=== PATIENT | male | born 1995 | race Caucasian/White ===

== ENCOUNTER 2017-05-12 18:51 | Inpatient (IN) | payer BC, OTHER ==
[~2017-05-12] VITALS: Ht 190.5 cm; Wt 68.0 kg
--- NOTE | 2017-05-12 20:50 | NUR ---
Pre-admission assessment Patient is a 21-year old, male, seen at intake, AAOx4, no SOB noted at this time. Pt noted to be restless. Discussed with patient admission policies of the unit. Patient is coherent and able to respond to questions appropriately. Pt is ambulatory with steady gait. Noted with open skin on the left outer forearm. Per pt, "I keep on scratching it." Pt reports using these substance daily for the last 5 years: Heroin 0.5 to 1 gm IV and Methamphetamine 0.5 to 1 gm IV. Vital signs taken and as follows: VA=314/74, P=82, O2 sat on RA=97%, RR=20, T=98.3. Pt verbalized instructions and teachings regarding disposal of narcotic and other controlled home meds, unit protocols such as taking of vital signs Q4H and handling and disposal of contraband.
[2017-05-12] MEDS ORDERED: ONDANSETRON ODT 4 MG TAB.RAPDIS SL PRN (21:30)
[2017-05-12] MEDS ORDERED: IBUPROFEN 400 MG TABLET PO PRN (21:30)
[2017-05-12] MEDS ORDERED: METHOCARBAMOL 750 MG TABLET PO PRN (21:30)
[2017-05-12] MEDS ORDERED: DICYCLOMINE HCL 20 MG TABLET PO PRN (21:30)
[2017-05-12] MEDS ORDERED: ACETAMINOPHEN 325 MG TABLET PO PRN (21:30)
[2017-05-12] MEDS ORDERED: MIRALAX 17 GM POWD.PACK PO PRN (21:30)
[2017-05-12] MEDS ORDERED: HYDROXYZINE PAMOATE 25 MG CAPSULE PO PRN (21:30)
[2017-05-12] MEDS ORDERED: CLONIDINE HCL 0.1 MG TABLET PO PRN (21:30)
[2017-05-12] MEDS ORDERED: BUPRENORPHINE HCL 2 MG TAB.SUBL SL PRN (21:30)
[2017-05-12] MEDS ORDERED: ONDANSETRON 4 MG/2 ML VIAL IM PRN (21:30)
[2017-05-12] MEDS ORDERED: MAG HYDROX/AL HYDROX/SIMETH 30 ML LIQUID UDC PO PRN (21:30)
[2017-05-12] MEDS ORDERED: MAGNESIUM HYDROXIDE 30 ML LIQUID UDC PO PRN (21:30)
[2017-05-12] MEDS ORDERED: LOPERAMIDE HCL 2 MG CAPSULE PO PRN ×2 (21:30)
--- NOTE | 2017-05-12 22:00 | NUR ---
ADMISSION NOTE HT=6'3" XR=723 LBS B/P=133/74,HR=82,T=98.1,R=20,O2 SAT=07%. NKA. HX OF HEP C. COW=2 ADMITTING 21 Y/O MALE TO [facility] FOR OPIATE AND METH DEPENDENCY.PT REPORTED USING HEROIN AND METH, ON AND OFF FOR PAST 5 YEARS.HE HAS BEEN USING 1 GRAM OF HEROIN IV AND 0.5 GRAMS OF METH IV ON A DAILY BASIS FOR THE PAST 8 DAYS.HE WAS LIVING IN A SOBER LIVING PLACE BUT RELAPSED 8 DAYS AGO AND HAS BEEN LIVING IN A HOTEL.HE REFUSED TO DISCLOSE HIS OCCUPATION,STATED "I MAKE A LOT OF MONEY".PT DENIES ANY ALLERGIES.PMH OF HEPATITIS C.PT DOES NOT HAVE A PCP.HAS NO SUPPORT FROM HIS FAMILY. PT IS A/O X 4.BREATHING IS EVEN AND NON LABORED,ABDOMEN NON TENDER WITH HYPOACTIVE BOWEL SOUNDS X 4.SKIN IS WARM AND DRY.PT HAS A SELF INFLICTED ABRASION ON HIS LEFT FOREARM DUE TO SCRATCHING ON HIMSELF.NO DISCHARGE OR BLEEDING NOTED.NO S/S OF INFECTION NOTED.NO C/O PAIN NOTED.PT AMBULATES WITH A STEADY GAIT.COOPERATIVE WITH ADMISSION.PLACED ON A REGULAR DIET,FULL CODE STATUS AND FALL PRECAUTIONS.ALL SAFETY MEASURES IN PLACE,SNACK PROVIDED,PO FLUIDS ENCOURAGED TOLERATED.PT UNABLE TO PROVIDE A URINE SPECIMEN UPON ADMISSION.BED IS LOCKED IN THE LOWEST POSITION WITH SIDE RAILS UP X 2,CALL TODD WITHIN REACH.PT ORIENTED TO ROOM AND UNIT.DR MAKI MADE AWARE.WILL CONTINUE TO MONITOR FOR SAFE DETOX. SUBS ABUSE HX 1)HEROIN-PT USES 1 GRAM IV DAILY FOR PAST 8-9 DAYS,LAST USED ON 05/12/17 @ 1700. 2)METH-PT USES 0.1 GRAM IV DAILY FOR PAST 8 DAYS,LAST USED ON 05/11/17 IN THE EVENING. LONGEST PERIOD OF SOBRIETY WAS FOR 92 DAYS FROM APRIL TO 2015. RECENT DETOX HX:-- 1)[facility] FOR 12 DAYS IN MARCH 2017. 2)[facility] DET[facility] FOR 21 DAYS IN OCTOBER 2016. Addendum: 05/13/17 at 0737 by SUKI BARNES RN LATE ENTRY FOR 05/12/17 @ 2200 :--PT HAS SEVERAL TRACK GARCIA ON BOTH ARMS,HANDS AND NECK.NO S/S OF INFECTION NOTED.
--- NOTE | 2017-05-13 06:54 | NUR ---
END OF SHIFT PT IS 21 Y/O MALE ADMITTED TO [facility] FOR OPIATE AND METH DEPENDENCY.PT REPORTED USING HEROIN AND METH, ON AND OFF FOR PAST 5 YEARS.HE HAS BEEN USING 1 GRAM OF HEROIN IV AND 0.5 GRAMS OF METH IV ON A DAILY BASIS FOR THE PAST 8 DAYS.PT DENIES ANY ALLERGIES.PMH OF HEPATITIS C.PT IS A/O X 4.BREATHING IS EVEN AND NON LABORED,ABDOMEN NON TENDER WITH HYPOACTIVE BOWEL SOUNDS X 4.SKIN IS WARM AND DRY.PT HAS A SELF INFLICTED ABRASION ON HIS LEFT FOREARM DUE TO SCRATCHING ON HIMSELF.NO DISCHARGE OR BLEEDING NOTED.NO S/S OF INFECTION NOTED.NO C/O PAIN NOTED.PICTURE TAKEN AND PLACED IN CHART.PT AMBULATES WITH A STEADY GAIT.PLACED ON A REGULAR DIET,FULL CODE STATUS AND FALL PRECAUTIONS.ALL SAFETY MEASURES IN PLACE.PO FLUIDS ENCOURAGED TOLERATED.PT UNABLE TO PROVIDE A URINE SPECIMEN UPON ADMISSION.WILL ENDORSE DAY SHIFT TO FOLLOW UP.PT SLEPT 7 HRS,FLUID INTAKE WAS 286 MLS,UNABLE TO VOID. PT REFUSED BLOOD DRAW X 2 FOR LAB WORK.WILL ENDORSE TO DAY SHIFT.NO PRN MEDS GIVEN.BED IS LOCKED IN THE LOWEST POSITION WITH SIDE RAILS UP X 2,CALL TODD WITHIN REACH.WILL CONTINUE TO MONITOR FOR SAFE DETOX.
--- NOTE | 2017-05-13 07:05 | NUR ---
Start Of Shift Report received. Pt is 21 y/o male admitted for opiate and meth dependency. Pt is full code regular diet on fall precautions, denies any food or drug allergies. Pt reported PMH of hepatitis C. Pt is not currently on a taper but has medication in case of withdrawal symptoms. Pt's last COWS was a 2, pt did not receive any PRN medications per voicer nurse. Encouraged pt to drink adequate amount of fluids to facilitate detox process. All safety measures in place bed in lowest locket position, pt slept a total of 8 hours last night. All needs met will continue to monitor and provide care
[2017-05-13 08:00] VITALS: BP 105/65
[2017-05-13] MEDS ORDERED: TUBERCULIN,PURIF.PROT.DERIV. 5 TU/0.1 ML TEST ID ONE (09:00)
[2017-05-13] MEDS: MULTIVITAMINS,THERAPEUTIC TABLET PO SCH (09:00)
[2017-05-13 12:00] VITALS: BP 115/72
[2017-05-13 13:00] LABS: BASOPHILS % (AUTO) 0.5 % (0.0-2.0); EOSINOPHILS # (AUTO) 0.1 K/uL (0.0-0.7); EOSINOPHILS % (AUTO) 1.9 % (0.0-7.0); HEMATOCRIT 42.9 % (40-50); HEMOGLOBIN 14.1 G/DL (14.0-18.0); LYMPHOCYTES # (AUTO) 1.7 K/UL (0.8-4.8); LYMPHOCYTES % (AUTO) 25.3 % (20.5-74.5); MEAN CORPUSCULAR HEMOGLOBIN 29.8 UUG (27.0-31.0); MEAN CORPUSCULAR HGB CONC 33 g/dL (32.0-37.0); MEAN CORPUSCULAR VOLUME 90.3 FL (82.0-92.0); MONOCYTES # (AUTO) 0.4 K/UL (0.1-1.30); MONOCYTES % (AUTO) 6.4 % (0-11); NEUTROPHILS # (AUTO) 4.6 K/UL (1.8-8.9); NEUTROPHILS % (AUTO) 65.9 % (31.5-64.5); PLATELET COUNT (AUTO) 199 K/UL (150-450); RED BLOOD CELL COUNT(AUTO) 4.75 MIL/UL (4.7-6.1); WHITE BLOOD COUNT (AUTO) 6.8 K/UL (4.0-11.2)
[2017-05-13 13:13] LABS: ETHANOL < 3 MG/DL (0-0)
[2017-05-13 13:15] LABS: ALANINE AMINOTRANSFERASE 30 U/L (16-63); ALKALINE PHOSPHATASE 63 U/L (50-136); AMYLASE 38 U/L (25-115); ASPARTATE AMINOTRANSFERASE 24 U/L (15-37); BILIRUBIN,TOTAL 0.3 mg/dL (0.2-1.0); CARBON DIOXIDE 28 mmol/L (21-32); CHLORIDE 106 mmol/L (98-107); CREATININE 0.8 mg/dL (0.6-1.3); GLUCOSE 94 mg/dL (74-106); LIPASE 106 U/L (73-393); MAGNESIUM 1.8 mg/dL (1.8-2.4); POTASSIUM 3.9 mmol/L (3.5-5.1); TOTAL PROTEIN, SERUM 7.1 g/dL (6.4-8.2); UREA NITROGEN, BLOOD 10 mg/dL (7-18)
[2017-05-13 13:26] LABS: THYROID STIMULATING HORMONE 0.141 mIU/mL (0.358-3.740)
[2017-05-13] MEDS: BUPRENORPHINE HCL 2 MG TAB.SUBL SL SCH ×3 (13:59→20:15)
[2017-05-13 15:36] LABS: *AMPHETAMINE, URINE NEGATIVE (NEGATIVE); *BARBITURATE, URINE NEGATIVE (NEGATIVE); *CANNABINOID, URINE POSITIVE (NEGATIVE); *COCCAINE, URINE NEGATIVE (NEGATIVE); *OPIATE, URINE POSITIVE (NEGATIVE); *PHENCYCLIDINE SCREEN,URINE NEGATIVE (NEGATIVE)
[2017-05-13 16:00] VITALS: BP 100/69
--- NOTE | 2017-05-13 19:22 | NUR ---
End Of Shift Report given. Pt is 21 y/o male admitted for opiate and meth dependency. Pt is full code regular diet on fall precautions, denies any food or drug allergies. Pt reported PMH of hepatitis C. Pt started his 5 day Subutex taper tolerating well. VS monitored closely q 4 hours. Withdrawal symptoms were closely monitored. Initial COWS 5. Patient encouraged adequate PO fluid intake as tolerated. Patient presented with tremors and anxiety during the day. Last COWS 13. Per patient, Subutex has been helping him with his withdrawal symptoms. Pt ate all of his meals. No PRN medications given during the day. Patient encouraged to attend group therapies/sessions to learn new coping skills to recent relapse, patient denies SI/HI. Participated in group and therapy sessions. All needs met and attended
--- NOTE | 2017-05-13 19:26 | NUR ---
START OF SHIFT NOTE Pt is a 21 y/o male admitted for Heroin and Meth dependence and use. Pt has NKA but reported a PMH of Hep C, depression, and anxiety. Per day shift nurse pt was placed on a 5 day Subutex taper (day 1) and is tolerating medication well with no s/e or a/r reported. Pt didn't receive any PRNS during the day shift. Last COW: 13 (1600). At this time pt is in his room watching television. Pt's skin is dry and intact with no tremors noted. PERRLA noted. Pt denies any pain/discomfort at this time. Pt was encouraged to notify staff of any changes in condition or of any concerns. Pt verbalized an understanding. All safety measures in place. Will continue to monitor.
[2017-05-13 20:00] VITALS: BP 138/89
[2017-05-14] VITALS: BP 137/89
--- NOTE | 2017-05-14 04:00 | NUR ---
VITALS REFUSED/ COW DEFERRED Pt refused to have vitals taken at this time. Pt was encouraged x 3 with risks and benefits explained, but the pt still refused. COW assessment deferred until pt is awake. All safety measures in place. Will continue to monitor. Addendum: 05/14/17 at 0455 by DRE NEGRETE LVN Amended: Links added.
--- NOTE | 2017-05-14 07:19 | NUR ---
END OF SHIFT NOTE Pt is a 21 y/o male admitted for Heroin and Meth dependence and use. Pt has NKA but reported a PMH of Hep C, depression, and anxiety. Pt was placed on a 5 day Subutex taper (day 2) and is tolerating medication well with no s/e or a/r reported. Pt didn't receive any PRNS during the shift. Last COW: 1 (0000). Pt slept for a total of 8 hours. All safety measures in place. Will endorse to the oncoming nurse.
--- NOTE | 2017-05-14 07:20 | NUR ---
Start Of Shift Report received. Pt is 21 y/o male admitted for opiate and meth dependency. Pt is full code regular diet on fall precautions, denies any food or drug allergies. Pt reported PMH of hepatitis C. Pt Pt continues his 5 day Subutex taper, tolerating well. Pt c/o sweats, anxiety and difficulty sleeping last night. Pt's last COWS was a 1 at 0000, pt did not receive any PRN medications per mold shifter nurse. Encouraged pt to drink adequate amount of fluids to facilitate detox process. All safety measures in place bed in lowest locket position, pt slept a total of 8 hours last night. All needs met will continue to monitor and provide care
[2017-05-14 08:00] VITALS: BP 100/63
[2017-05-14] MEDS ORDERED: TUBERCULIN,PURIF.PROT.DERIV. 5 TU/0.1 ML TEST ID ONE (09:00)
[2017-05-14] MEDS ORDERED: BUPRENORPHINE HCL 2 MG TAB.SUBL SL SCH (09:00)
[2017-05-14] MEDS: MULTIVITAMINS,THERAPEUTIC TABLET PO SCH (09:23)
[2017-05-14 10:07] LABS: HEPATITIS B SURFACE AG Negative (Negative)
[2017-05-14 12:00] VITALS: BP 131/78
[2017-05-14] MEDS: BUPRENORPHINE HCL 2 MG TAB.SUBL SL SCH ×2 (15:39→21:30)
[2017-05-14 16:00] VITALS: BP 130/76
--- NOTE | 2017-05-14 19:09 | NUR ---
End Of Shift Report given. Pt is 21 y/o male admitted for opiate and meth dependency. Pt is full code regular diet on fall precautions, denies any food or drug allergies. Pt reported PMH of hepatitis C. Pt started his 5 day Subutex taper tolerating well. VS monitored closely q 4 hours. Withdrawal symptoms were closely monitored. Initial COWS 7. Patient encouraged adequate PO fluid intake as tolerated. Patient presented with tremors and anxiety during the day. Last COWS 4. Per patient, Subutex has been helping him with his withdrawal symptoms. Pt ate all of his meals Pt received a PPD on his right arm. No PRN medications given during the day. Patient encouraged to attend group therapies/sessions to learn new coping skills to recent relapse, patient denies SI/HI. Participated in group and therapy sessions. All needs met and attended
[2017-05-14 20:00] VITALS: BP 123/82
--- NOTE | 2017-05-14 20:00 | NUR ---
START OF SHIFT NOTE Pt is a 21 y/o male admitted for Heroin and Meth dependence and use. Pt has NKA but reported a PMH of Hep C, depression, and anxiety. Per day shift nurse pt continues on a 5 day Subutex taper (day 2) and is tolerating medication well with no s/e or a/r reported. Pt didn't receive any PRNS during the day shift. Last COW: 4 (1600). At this time pt is in his room watching television. Pt's skin is dry and intact with no tremors noted. PERRLA noted. Pt denies any pain/discomfort at this time. Pt was encouraged to notify staff of any changes in condition or of any concerns. Pt verbalized an understanding. All safety measures in place. Will continue to monitor.
[2017-05-14] MEDS: diphenhydrAMINE 50 MG CAPSULE PO PRN (21:34)
--- NOTE | 2017-05-14 21:37 | NUR ---
BENADRYL PRN ADMINISTRATION Pt received Benadryl 50 mg PO PRN for c/o insomnia. Will monitor for effectiveness.
--- NOTE | 2017-05-14 22:37 | NUR ---
BENADRYL PRN REASSESSMENT Pt is asleep in bed with no signs of discomfort/distress noted. PRN effective. Will continue to monitor.
--- NOTE | 2017-05-15 | NUR ---
VITALS REFUSED/ COW DEFERRED Pt refused to have vitals taken at this time. Pt was encouraged x 3 with risks and benefits explained, but the pt still refused. COW assessment deferred until pt is awake. All safety measures in place. Will continue to monitor. Addendum: 05/15/17 at 0416 by DRE NEGRETE LVN Amended: Links added.
--- NOTE | 2017-05-15 04:00 | NUR ---
VITALS REFUSED/ COW DEFERRED Pt refused to have vitals taken at this time. Pt was encouraged x 3 with risks and benefits explained, but the pt still refused. COW assessment deferred until pt is awake. All safety measures in place. Will continue to monitor. Addendum: 05/15/17 at 0417 by DRE NEGRETE LVN Amended: Links added.
--- NOTE | 2017-05-15 06:53 | NUR ---
END OF SHIFT NOTE Pt is a 21 y/o male admitted for Heroin and Meth dependence and use. Pt has NKA but reported a PMH of Hep C, depression, and anxiety. Pt continues on a 5 day Subutex taper (day 3) and is tolerating medication well with no s/e or a/r reported. Pt received Benadryl 50 mg PO PRN during the shift. Last COW: 3 (1999). Pt slept for a total of 8 hours. All safety measures in place. Will endorse to the oncoming nurse.
--- NOTE | 2017-05-15 07:40 | NUR ---
START OF SHIFT Pt is a 22 yr old male, AA&Ox3. Pt was admitted on 05/12/17 for Opiate and Methamphetamines dependence and is on 4 day Subutex taper as ordered. Pt is currently in bed resting with respirations even and unlabored. No acute distress noted. Skin is warm and dry to touch. Pt is still noted with LFA abrasion presented upon admission. No s/s of infection noted. Benadryl PRN was given during the night. Medication was affective. Last COWS score was 3. Safety precautions observed. Call light is within reach. Will continue to monitor.
[2017-05-15 08:08] VITALS: BP 100/57
[2017-05-15] MEDS: MULTIVITAMINS,THERAPEUTIC TABLET PO SCH (09:00)
[2017-05-15] MEDS: BUPRENORPHINE HCL 2 MG TAB.SUBL SL SCH ×3 (09:39→21:40)
--- NOTE | 2017-05-15 09:40 | NUR ---
REFUSED MEDICATION Pty refuse to take Multivitamin as ordered at 0900. Medication was offered x3 but pt continued to refuse. Risks and benefits were explained.
[2017-05-15 12:36] VITALS: BP 114/51
[2017-05-15 16:00] VITALS: BP 131/82
--- NOTE | 2017-05-15 18:56 | NUR ---
END OF SHIFT Pt is a 22 yr old male, AA&Ox3. Pt was admitted on 05/12/17 for Opiate and Methamphetamines dependence and is on 4 day Subutex taper as ordered. Pt has been cooperative with medication regime. Pt refused to attend group sessions. Encouraged to attend group activities. Pt is observed with aniety m/b difficulty staying still. Skin is warm and dry to touch. Pt is still noted with LFA abrasion presented upon admission. No s/s of infection noted. Dressing intact. Pt c/o pain on left arm. Tylenol PRN and Motrin was offered but pt refused. Last COWS score was 3. Safety precautions observed. Call light is within reach.
[2017-05-15 20:00] VITALS: BP 122/70
--- NOTE | 2017-05-15 20:12 | NUR ---
START OF SHIFT NOTE Pt is a 22 y/o male admitted for Heroin and Meth dependence and use. Pt has NKA but reported a PMH of Hep C, depression, and anxiety. Per day shift nurse pt continues on a 5 day Subutex taper (day 3) and is tolerating medication well with no s/e or a/r reported. Pt didn't receive any PRNS during the day shift. Last COW: 3 (1600). At this time pt has approached the station requesting to go down and have a cigarette. Pt's skin is dry and intact with no tremors noted. PERRLA noted. Pt denies any pain/discomfort at this time. Pt was encouraged to notify staff of any changes in condition or of any concerns. Pt verbalized an understanding. All safety measures in place. Will continue to monitor.
[2017-05-15] MEDS: diphenhydrAMINE 50 MG CAPSULE PO PRN (23:10)
--- NOTE | 2017-05-15 23:10 | NUR ---
BENADRYL PRN ADMINISTRATION Pt received Benadryl 20 mg PO PRN for a c/o insomnia. All safety measures in place. Will monitor for effectiveness.
[2017-05-16] VITALS: BP 128/76
--- NOTE | 2017-05-16 00:10 | NUR ---
BENADRYL PRN REASSESSMENT Pt is asleep in bed with no signs of discomfort/distress noted. PRN effective. All safety measures in place. Will continue to monitor.
--- NOTE | 2017-05-16 04:00 | NUR ---
VITALS REFUSED/ COW DEFERRED Pt refused to have vitals taken at this time. Pt was encouraged x 3 with risks and benefits explained but the pt still declined. COW assessment deferred until pt is awake. All safety measures in place. Will continue to monitor. Addendum: 05/16/17 at 0531 by DRE NEGRETE LVN Amended: Links added.
--- NOTE | 2017-05-16 07:01 | NUR ---
END OF SHIFT NOTE Pt is a 22 y/o male admitted for Heroin and Meth dependence and use. Pt has NKA but reported a PMH of Hep C, depression, and anxiety. Pt continues on a 5 day Subutex taper (day 4) and is tolerating medication well with no s/e or a/r reported. Pt received Benadryl 50 mg PO PRN during the shift. Last COW: 2 (0000). Pt slept for a total of 6 hours. All safety measures in place. Will endorse to the oncoming nurse.
--- NOTE | 2017-05-16 07:35 | NUR ---
START OF SHIFT NOTE Patient is alert and orientated X 4. Laying in bed resting with respirations even and unlabored. Patient slept 6 hours last night according to night nurse with the last COWS 2. Benadryl PRN was given last night. Patient has an abrasion on his forearm that is clean and covered. Patient is on a subutex taper and tolerating well. All safety measures in place. will continue to monitor.
[2017-05-16 08:12] VITALS: BP 105/73
[2017-05-16] MEDS ORDERED: BUPRENORPHINE HCL 2 MG TAB.SUBL SL SCH (09:00)
[2017-05-16] MEDS: MULTIVITAMINS,THERAPEUTIC TABLET PO SCH (09:16)
[2017-05-16] MEDS ORDERED: DICY20TA28 PO (10:22)
[2017-05-16] MEDS ORDERED: METH-406 PO (10:22)
[2017-05-16] MEDS ORDERED: IBUP-1953 PO (10:22)
[2017-05-16] MEDS ORDERED: DIPH50CA37 PO (10:22)
[2017-05-16] MEDS ORDERED: HYDR-3895 PO (10:22)
[2017-05-16 12:37] VITALS: BP 111/59
--- NOTE | 2017-05-16 14:13 | NUR ---
Therapist prompted client about group times. Client stated he is "too tired" to attend groups and he is "leaving tomorrow anyway."
[2017-05-16] MEDS ORDERED: NEOMY/BACITRAC/POLYMI OINT 28.35 GM TUBE TOP PRN (16:30)
[2017-05-16] MEDS ORDERED: BOOST PLUS 237 ML LIQUID (RICH CHOCOLATE) PO SCH (17:00)
[2017-05-16 17:17] LABS: *AMPHETAMINE, URINE NEGATIVE (NEGATIVE); *BARBITURATE, URINE NEGATIVE (NEGATIVE); *CANNABINOID, URINE NEGATIVE (NEGATIVE); *COCCAINE, URINE NEGATIVE (NEGATIVE); *OPIATE, URINE POSITIVE (NEGATIVE); *PHENCYCLIDINE SCREEN,URINE NEGATIVE (NEGATIVE)
[2017-05-16 17:28] VITALS: BP 124/64
--- NOTE | 2017-05-16 18:59 | NUR ---
END OF SHIFT NOTE Patient is alert and oriented X4. Vital signs remain stable throughout the day. Patient received no PRNs today. Last COWS 2, patient has no complaints of withdrawal symptoms today. He participated in group and activities. Plan is for patient to be discharge tomorrow to [facility]. All safety measures are in place per hospital policy. All needs have been met. Will continue to monitor patient until endorsed to oncoming nurse.
--- NOTE | 2017-05-16 19:45 | NUR ---
Start of Shift Note: Report received from day shift nurse. Pt is a 22 Y/O male admitted on 05/12/17 for medically-supervised withdrawal from opiates and stimulants. Pt reports using heroin 1gm/day and methamphetamine 0.5gm/day for 8 days. Pt completed a 4-day Subutex taper and is to discharge tomorrow. Pt received with last COWS=2, and no PRN medications were given during day shift. Pt reports NKDA/NKFA. Pt is a full code. Pt is on a regular diet. PMHx: Hep-C+, anxiety, depression. Pt received in room, and reports anxiety, diaphoresis, generalized pain; pt noted to be mildly agitated and restless d/t not be able to smoke during group session and states that he "does not need a meeting." Pt educated on the importance of attending group to maintain sobriety. Bed is in low position and locked, side rails up x2, call light within reach. Will continue to monitor.
[2017-05-16 20:00] VITALS: BP 103/67
[2017-05-16] MEDS: diphenhydrAMINE 50 MG CAPSULE PO PRN (23:40)
--- NOTE | 2017-05-16 23:40 | NUR ---
PRN Vistaril and PRN Benadryl: Patient complains of anxiety and inability to sleep. Administered PRN Vistaril and PRN Benadryl as ordered. Will continue to monitor.
[2017-05-17] VITALS: BP 101/72
--- NOTE | 2017-05-17 00:40 | NUR ---
PRN Reassessment: Patient is in bed with eyes closed. Respirations are even and unlabored. No s/s of acute distress noted. PRN Vistaril and PRN Benadryl effective AEB patient's ability to rest.
--- NOTE | 2017-05-17 04:00 | NUR ---
V/S Refused, COWS Deferred: Patient refuses 04:00 vital signs. Patient educated on risks/benefits and still refused for sleep. COWS is deferred for sleep. All safety precautions are in place. Will continue to monitor. Addendum: 05/17/17 at 0436 by BINH ORELLANA RN Amended: Links added.
--- NOTE | 2017-05-17 07:01 | NUR ---
End of Shift Note: Pt is a 22 Y/O male admitted to [facility] on 05/12/17 for medically-supervised withdrawal from opiates and stimulants. Pt reported a PMHx of Hep-C+, anxiety, and depression. Pt is a full code. Pt reports NKDA/NKFA. Pt is on a regular diet. Pt reported using heroin 1gm/day and methamphetamine 0.5gm/day for 8 days. Pt completed a 4-day Subutex taper and is to discharge today. Scheduled medication regime managed s/s of withdrawal this shift, in addition to PRN Vistaril for anxiety. Last COWS=3 at 00:00.V/S stable throughout shift. Total fluid intake this shift: 1855 ml; output: urine x 4 and BM x 0. PRN Benadryl was given for insomnia, which was effective and slept 6 hours this shift. Pt is currently in bed, all needs have been attended and met. Pt endorsed to day shift nurse.
--- NOTE | 2017-05-17 07:08 | NUR ---
Start of Shift Endorsement received from nightshift nurse. Pt is a 22 y/o male admitted for heroin and meth dependance. PT has been placed on a 4day Subutex taper. PT has completed his taper and has been scheduled to be discharged today, 05/17/17. All discharge documentation and discharge education has been completed. Pt slept 8 hours during the night. Pt is tolerating the detox and mildly withdrawing AEB COWS 3 at 0400. Pt received PRN Vistaril and Benadryl. VS WNL. Full Code. PT is alert and oriented x4. Pt is in STABLE condition at this time. Remains compliant with medication and diet regimen. All needs have been met, All safety measures in place per hospital policy. Bed in lowest position, side rails up x2, call-light within reach. Will continue to monitor
[2017-05-17 08:02] VITALS: BP 107/64
[2017-05-17] MEDS: MULTIVITAMINS,THERAPEUTIC TABLET PO SCH (09:00)
--- NOTE | 2017-05-17 09:47 | NUR ---
Discharge note PT has been discharged from [facility] to [facility]. PT is in Stable condition, VS WNL. Denies suicidal and homicidal ideations at this time. . All documentation has been completed, paperwork signed and dated. Pt left with all of his belongings, medications and prescriptions. Pt has been discharged from [facility] on 05/17/17 at 0947. has been Notified.
== END 2017-05-17 09:48 | disposition other institution (70) | DRG 895 ==
LOC: SRC 20:25
PROVIDERS: ADMIT Internal Medicine; ATTEND Internal Medicine
PROC: HZ2ZZZZ Detoxification Services for Substance Abuse Treatment (ICD-10-PCS; principal; 2017-05-12)
PROC: HZ31ZZZ Individual Counseling for Substance Abuse Treatment, Behavioral (ICD-10-PCS; 2017-05-15)
DX: F11.23 Opioid dependence with withdrawal (principal); F15.20 Other stimulant dependence, uncomplicated; F41.9 Anxiety disorder, unspecified; F17.210 Nicotine dependence, cigarettes, uncomplicated; R76.11 Nonspecific reaction to tuberculin skin test without active tuberculosis; Z81.8 Family history of other mental and behavioral disorders; Z59.1 Inadequate housing; F31.9 Bipolar disorder, unspecified; S50.812A Abrasion of left forearm, initial encounter; L08.9 Local infection of the skin and subcutaneous tissue, unspecified; W45.8XXA Other foreign body or object entering through skin, initial encounter; W22.8XXA Striking against or struck by other objects, initial encounter; Y92.89 Other specified places as the place of occurrence of the external cause; Y99.8 Other external cause status; F13.10 Sedative, hypnotic or anxiolytic abuse, uncomplicated; E07.81 Sick-euthyroid syndrome
CPT/HCPCS: 36415; 80307; 80349; 80361; 83690; 83735; 84443; 85025; 86580; 86592; 86705; 86803; 87340; 87806; A4663; G0480; Q0163

== ENCOUNTER 2017-05-31 14:02 | Inpatient (IN) | payer BC, OTHER ==
[~2017-05-31] VITALS: Ht 190.5 cm; Wt 66.7 kg
[~2017-05-31 14:02] MED LIST: DICY20TA28 PO; DIPH50CA37 PO; HYDR-3895 PO; IBUP-1953 PO; METH-406 PO
[2017-05-31 14:50] VITALS: BP 115/61
--- NOTE | 2017-05-31 14:50 | NUR ---
Pre-admission assessment: Client is a 22-year old, male, seen at intake at this time. AAOx4, no SOB noted at this time. Pt noted to be restless legs, appears anxious yet withdrawn, decreased eye contact noted. Discussed with patient admission policies of the unit. Patient is coherent and able to respond to questions appropriately. Client states that he is here to detox off of opiates and ETOH. He is ambulatory ad camilla with steady gait. Denies any seizure history. Denies any drug or food allergies. Reports past medical hx of Hep C. Currently complains of chills, hot flashes, body aches 5/10, stomach cramps and nausea. Denies taking any medications at home. VS taken: BP 115/61 Pulse 92 Temp 98.3 RR 19 O2 at = 98%RA PL 5/10. COWS: 8 CIWA 5: Dr. Smith in to see the patient while in intake and will enter in admission orders.
[2017-05-31] MEDS ORDERED: ONDANSETRON 4 MG/2 ML VIAL IM PRN (15:00)
[2017-05-31] MEDS ORDERED: CLONIDINE HCL 0.1 MG TABLET PO PRN (15:00)
[2017-05-31] MEDS ORDERED: MIRALAX 17 GM POWD.PACK PO PRN (15:00)
[2017-05-31] MEDS ORDERED: METHOCARBAMOL 750 MG TABLET PO PRN (15:00)
[2017-05-31] MEDS ORDERED: BUPRENORPHINE HCL 2 MG TAB.SUBL SL PRN (15:00)
[2017-05-31] MEDS ORDERED: MAG HYDROX/AL HYDROX/SIMETH 30 ML LIQUID UDC PO PRN (15:00)
[2017-05-31] MEDS ORDERED: HYDROXYZINE PAMOATE 25 MG CAPSULE PO PRN (15:00)
[2017-05-31] MEDS ORDERED: MAGNESIUM HYDROXIDE 30 ML LIQUID UDC PO PRN (15:00)
[2017-05-31] MEDS ORDERED: diphenhydrAMINE 50 MG CAPSULE PO PRN (15:00)
[2017-05-31] MEDS ORDERED: ONDANSETRON ODT 4 MG TAB.RAPDIS SL PRN (15:00)
[2017-05-31] MEDS ORDERED: ACETAMINOPHEN 325 MG TABLET PO PRN (15:00)
[2017-05-31] MEDS ORDERED: DICYCLOMINE HCL 20 MG TABLET PO PRN (15:00)
[2017-05-31] MEDS ORDERED: LOPERAMIDE HCL 2 MG CAPSULE PO PRN ×2 (15:00)
[2017-05-31] MEDS ORDERED: IBUPROFEN 600 MG TABLET PO PRN (15:00)
--- NOTE | 2017-05-31 15:00 | NUR ---
Admission Note: Admitted at 22 year old male who states that he is here to detox from opiates and ETOH under the care of Dr. Edgar Smith. He is alert and oriented x 4. Verbally responsive. Able to make needs known. Respirations even and unlabored. No SOB noted. Body search done by male TRANSIT SPECIALIST. No contraband was found. Skin check done. Noted with scar on his left forearm that he reports was self inflicted from scratching. Area is intact. No bleeding noted. Multiple trackmarks noted to bilateral arms, no bleeding noted and a track júnior on his left jugular vein. Abdomen soft and non-distended. BS (+) in all 4 quadrants. Reports LBM was 3 days ago. Noted with complain of stomach cramps and nausea. Bladder non-distended. No complains of dysuria. Voids independently. Unable to provide urine for UDS at this time. Ambulatory ad camilla with steady gait. He reports NKA. Wishes to be FULL CODE. Follows a regular diet. Has past medical hx of Hep C. Denies having a PCP at this time. His longest period of sobriety was 92 days from April 2016 to June 2015. Denies any family history of substance abuse. Denies taking any medications while at home and did not bring in any home meds. Substance Use: 1. Heroin - started using at 17 years old. Uses 1 gram of Heroin IV for 1 week and a half. Last use was on 05/31/2017 at 0200. 2. ETOH - started using at 13 years old. Drinks 325cc of Vodka daily x 1 week and a half. Last use was on 05/30/2017 at 1700, however stated that he does not remember how much. Treatment History: 1. [facility] x 21 days in October 2016 2. [facility] x 12 days in March 2017 [facility]. [facility] days from 05/12/2017 to 05/17/2017 4. [facility] x 4 days from 05/17/2017 to 05/20/2017 Admission orders were obtained from Dr. Smith and will be started on 4-day Subutex taper in AM and PRN Ativan per CIWA score. Orders noted and carried out. Patient placed on room restriction per unit policy due to inability to provide urine for UDS at this time. Explained unit's policies and protocols to the patient. Call light in reach. Bilateral siderails up when in bed for safety. Placed on fall and seizure precautions. All needs met and attended. Will continue to monitor closely.
[2017-05-31] MEDS ORDERED: LORAZEPAM 1 MG TABLET PO PRN ×2 (15:15)
[2017-05-31] MEDS ORDERED: LORAZEPAM 2 MG/1 ML VIAL IM PRN (15:15)
[2017-05-31 16:00] VITALS: BP 101/61
[2017-05-31 16:28] LABS: ETHANOL < 3 MG/DL (0-0)
[2017-05-31 16:30] LABS: BASOPHILS % (AUTO) 0.3 % (0.0-2.0); EOSINOPHILS # (AUTO) 0.2 K/uL (0.0-0.7); EOSINOPHILS % (AUTO) 2.6 % (0.0-7.0); HEMATOCRIT 39.7 % (40-50); HEMOGLOBIN 13.2 G/DL (14.0-18.0); LYMPHOCYTES % (AUTO) 27.6 % (20.5-51.5); MEAN CORPUSCULAR HEMOGLOBIN 29.1 UUG (27.0-31.0); MEAN CORPUSCULAR HGB CONC 33 g/dL (32.0-37.0); MEAN CORPUSCULAR VOLUME 87.8 FL (82.0-92.0); MONOCYTES # (AUTO) 0.6 K/UL (0.1-1.30); MONOCYTES % (AUTO) 8.7 % (0.0-11.0); NEUTROPHILS # (AUTO) 4.3 K/UL (1.8-8.9); NEUTROPHILS % (AUTO) 60.8 % (38.5-71.5); RED BLOOD CELL COUNT(AUTO) 4.53 MIL/UL (4.7-6.1); WHITE BLOOD COUNT (AUTO) 7.1 K/UL (4.0-11.2)
[2017-05-31 16:32] LABS: ALANINE AMINOTRANSFERASE 25 U/L (16-63); ALKALINE PHOSPHATASE 61 U/L (50-136); ASPARTATE AMINOTRANSFERASE 22 U/L (15-37); BILIRUBIN,TOTAL 0.4 mg/dL (0.2-1.0); CARBON DIOXIDE 32 mmol/L (21-32); CHLORIDE 103 mmol/L (98-107); CREATININE 0.8 mg/dL (0.6-1.3); GLUCOSE 103 mg/dL (74-106); MAGNESIUM 1.9 mg/dL (1.8-2.4); POTASSIUM 3.7 mmol/L (3.5-5.1); TOTAL PROTEIN, SERUM 7.3 g/dL (6.4-8.2); UREA NITROGEN, BLOOD 13 mg/dL (7-18)
[2017-05-31 16:43] LABS: AMYLASE 45 U/L (25-115); LIPASE 165 U/L (73-393)
[2017-05-31 18:58] LABS: *AMPHETAMINE, URINE NEGATIVE (NEGATIVE); *BARBITURATE, URINE POSITIVE (NEGATIVE); *CANNABINOID, URINE NEGATIVE (NEGATIVE); *COCCAINE, URINE NEGATIVE (NEGATIVE); *OPIATE, URINE POSITIVE (NEGATIVE); *PHENCYCLIDINE SCREEN,URINE NEGATIVE (NEGATIVE)
--- NOTE | 2017-05-31 18:58 | NUR ---
End of Shift Notes: Patient will be starting on 4-day Subutex taper in AM. Off room restriction and was able to provide urine for UDS. On fall and seizure precautions. All needs met and attended. Will continue to monitor.
--- NOTE | 2017-05-31 19:50 | NUR ---
Start of shift report: Rec'd resting in bed with eyes closed. 22 y/o male admitted with ETOH and Heroin dependency. Patient will start Subutex taper in am. Patient 's COWS score is 8 and CIWA score is 6. No signs of acute resp distress. Afebrile and vital signs are stable. Reviewed current plan of care. Safety precaution in progress. Bed is in the lowest position, side rails are up and call light within reach. Will continue to monitor closely.
[2017-05-31 19:59] LABS: PLATELET COUNT (AUTO) 119 K/UL (150-450)
[2017-05-31 20:07] VITALS: BP 115/55
[2017-06-01 00:35] VITALS: BP 111/52
[2017-06-01 04:35] VITALS: BP 123/70
--- NOTE | 2017-06-01 06:27 | NUR ---
EOS report: Patient had a uneventful night. Patient will start a 4 day Subutex taper in am. Patient's COWS score is 5 and CIWA score is 4. Patient rec'd no prn medication during the shift. Patient slept throughout the night. A total of 10 hours and 30 minutes. Intake/Output: 1820 ml/voided twice. No other concerns at this time. All needs were met. Safety and fall precaution maintained. Will endorse to oncoming shift to follow.
--- NOTE | 2017-06-01 07:00 | NUR ---
Start of Shift Notes: Received patient in his room. Alert and oriented x 4. Able to make his needs known. Respirations even and unlabored. No SOB noted. Skin warm and dry to touch. Abdomen soft and non-distended. BS (+) in all 4 quadrants. No complains of N/V/D or constipation noted. Voids independently. Ambulatory ad camilla with steady gait. Patient os a 22 year male admitted for opiate and ETOH dependence who was placed on a 4-day Subutex and PRN Ativan as ordered. No adverse reactions noted. Has past medical hx of Hep C. NKA. FULL CODE. Regular diet. On fall and seizure precautions. Educated patient on his current plan of care and the discharge process. Encouraged oral fluid intake and encouraged group participation to learn new skills to prevent relapse. Will continue to monitor closely.
[2017-06-01 08:00] VITALS: BP 105/62
[2017-06-01] MEDS ORDERED: TUBERCULIN,PURIF.PROT.DERIV. 5 TU/0.1 ML TEST ID ONE (09:00)
[2017-06-01] MEDS ORDERED: 4 DAY TAPER BUPRENORPHINE -SERENITY PROTOCOL SL PRN (09:00)
[2017-06-01] MEDS ORDERED: BUPRENORPHINE HCL 2 MG TAB.SUBL SL SCH ×2 (09:00→17:00)
[2017-06-01] MEDS: MULTIVITAMINS,THERAPEUTIC TABLET PO SCH (09:12)
[2017-06-01] MEDS: DOCUSATE SODIUM 250 MG CAPSULE PO SCH (09:12)
--- NOTE | 2017-06-01 09:14 | NUR ---
Robaxin 750mg PO/Clonidine 0.1mg PO given: Patient noted with complain of myalgia 6/10 related to withdrawal, anxiety, agitation, chills, and sweats. Medicated patient with Robaxin 750mg PO and Clonidine 0.1mg PO as ordered. Will monitor for effectiveness.
--- NOTE | 2017-06-01 10:14 | NUR ---
Re-assessment: Per patient, PRN Robaxin and Clonidine were effective in reducing myalgia to 2/10 and less anxiety, chills, and hot flashes noted.
[2017-06-01 12:00] VITALS: BP 96/47
--- NOTE | 2017-06-01 12:40 | NUR ---
Taper changed: Patient's taper was changed from 4-day Subutex to 3-day Subutex taper as ordered. Patient made aware.
[2017-06-01 16:00] VITALS: BP 111/65
--- NOTE | 2017-06-01 18:49 | NUR ---
End of Shift Notes: Patients taper was changed today from 4-day to 3-day as ordered. Tolerating taper well. No adverse reactions noted. Withdrawal symptoms were closely monitored. Initial COWS 12/CIWA 3, patient presented with muscle aches, pains, chills, hot flashes, sweats, restless legs, goosebumps, moderate dilation of the pupils. Medicated patient with Robaxin and Clonidine 0.1mg PO as ordered at 0914 with help after 1 hour. Last COWS 4/CIWA 2. Per patient, Subutex has been helping him with his withdrawal symptoms. VS monitored closely. No significant abnormalities noted. Compliant with care and treatment. All needs met and attended. Will continue to monitor closely.
--- NOTE | 2017-06-01 19:15 | NUR ---
Start of shift: Received patient in bed, awake, alert and oriented x4. Patient bed in high position. Educated patient and instructed him to bring the bed in the low position. Patient complied. Cooperative with care. Denies pain and any apparent discomfort at this time. Denies SI/HI/AVH. Compliant with medication and unit rules. Interacted with staff and peers. Speech is clear and able to make his needs known. Will continue to monitor behavior and medication effectiveness while MD titrates medication.
[2017-06-01 20:00] VITALS: BP 122/72
--- NOTE | 2017-06-02 00:40 | NUR ---
Patient asleep. Respiration even and unlabored. No signs of distress. Refused vital signs, CIWA, and COWS assessment at this time. Will continue to monitor sleep pattern. Addendum: 06/02/17 at 0048 by SADA CRUZ RN Amended: Links added.
--- NOTE | 2017-06-02 00:43 | NUR ---
Patient asleep. Respiration even and unlabored. no signs of distress. Refused Vital signs, CIWA, COWS assessment at this time. Will continue to monitor sleep pattern. Addendum: 06/02/17 at 0046 by SADA CRUZ RN Amended: Links added.
--- NOTE | 2017-06-02 04:00 | NUR ---
Patient refused vital signs at this time. Respiration even and unlabored. No signs of distress. Will continue to monitor sleep pattern. Addendum: 06/02/17 at 0504 by SADA CRUZ RN Amended: Links added.
--- NOTE | 2017-06-02 04:57 | NUR ---
Patient asleep. Refused COWS at this time. Will continue to monitor sleep pattern and behavior. Addendum: 06/02/17 at 0459 by SADA CRUZ RN Amended: Links added.
--- NOTE | 2017-06-02 04:59 | NUR ---
Patient asleep. Refused CIWA at this time. Respiration even and unlabored. Will continue to monitor behavior. Addendum: 06/02/17 at 0501 by SADA CRUZ RN Amended: Links added.
[2017-06-02 06:07] LABS: HEPATITIS B SURFACE AG Negative (Negative)
--- NOTE | 2017-06-02 06:29 | NUR ---
End of shift notes: Patient remained calm and cooperative with care. Interacted with staff and selective peers. Slept 6 hours and 25 minutes. Respiration even and unlabored. Administered Benadryl 50mg for insomnia. No behavior issues. Patient is visible on the unit. Compliant with medication and plan of care. Will continue to monitor behavior and medication effectiveness.
--- NOTE | 2017-06-02 07:00 | NUR ---
Start of Shift Notes: Received patient in his room. Alert and oriented x 4. Able to make his needs known. Respirations even and unlabored. No SOB noted. Skin warm and dry to touch. Abdomen soft and non-distended. BS (+) in all 4 quadrants. No complains of N/V/D or constipation noted. Voids independently. Ambulatory ad camilla with steady gait. Patient os a 22 year male admitted for opiate and ETOH dependence who was placed on a 3-day Subutex and PRN Ativan as ordered. No adverse reactions noted. Has past medical hx of Hep C. NKA. FULL CODE. Regular diet. On fall and seizure precautions. Educated patient on his current plan of care and the discharge process. Encouraged oral fluid intake and encouraged group participation to learn new skills to prevent relapse. Will continue to monitor closely.
[2017-06-02 08:00] VITALS: BP 90/45
[2017-06-02] MEDS: DOCUSATE SODIUM 250 MG CAPSULE PO SCH ×2 (08:59→09:00)
[2017-06-02] MEDS ORDERED: BUPRENORPHINE HCL 2 MG TAB.SUBL SL SCH ×2 (09:00→15:00)
[2017-06-02] MEDS: MULTIVITAMINS,THERAPEUTIC TABLET PO SCH (09:00)
[2017-06-02] MEDS: BUPRENORPHINE HCL 2 MG TAB.SUBL SL SCH ×3 (09:00→20:45)
--- NOTE | 2017-06-02 09:02 | NUR ---
DSS 250 mg PO and MVI 1 tab PO not administered: Patient refused DSS 250 mg PO and MVI at 0900. Educated patient on the risk and the benefits but still refused. Offered 3x still refused. Patient states "I don't want it, I just want my Subs." MD aware. Will continue to monitor and encourage the patient.
[2017-06-02 12:00] VITALS: BP 102/52
[2017-06-02 16:00] VITALS: BP 140/98
--- NOTE | 2017-06-02 18:46 | NUR ---
End of Shift Notes: Patients continues to be on a 3-day Subutex taper as ordered. Tolerating taper well. No adverse reactions noted. Withdrawal symptoms were closely monitored. Initial COWS 4/CIWA 3, patient presented with chills, hot flashes, anxiety and mild agitation. Last COWS 2/CIWA 1. Per patient, Subutex has been helping him with his withdrawal symptoms. VS monitored closely. No significant abnormalities noted. Refused MVI and DSS in AM and AM labs. MD aware. Education provided.. All needs met and attended. Will continue to monitor closely.
--- NOTE | 2017-06-02 19:10 | NUR ---
Start of Shift Patient Received. Patient is in his room, awake, alert and verbally responsive. Breathing even and non labored. No signs of pain or discomfort noted. Patient is a 22 year old male admitted on 05/31/17 for Opiate and ETOH Dependence under the care of Dr. Smith. Patient is currently receiving on a 3 day Subutex. Patient verbalizes no known allergies, wishes to be full code, following a regular diet, skin noted intact, placed on fall and seizure precautions. Past Medical history noted as Hep C (+) with no history of Seizures noted. Per endorsement, patients last noted CIWA 1 and COWS 2. All needs attended to promptly. Will continue plan of care as ordered.
[2017-06-02 20:12] VITALS: BP 128/81
[2017-06-03 00:15] VITALS: BP 114/61
[2017-06-03 04:30] VITALS: BP 104/63
--- NOTE | 2017-06-03 07:10 | NUR ---
End of Shift Patient is in bed sleeping but easily aroused to verbal stimuli. Breathing even and non labored. No signs of pain or discomfort. Patient is a 22 year old male admitted on 05/31/17 for Opiate and ETOH Dependence under the care of Dr. Smith. Patient is currently receiving on a 3 day Subutex. No known allergies, full code, Regular Diet, skin noted intact, placed on fall and seizure precautions. Past Medical history noted as Hep C (+) with no history of Seizures noted. No PRN medications administered. Last noted COWS 3 and CIWA 1. All needs attended to promptly. Will continue plan of care as ordered.
--- NOTE | 2017-06-03 07:55 | NUR ---
START OF SHIFT: PT IS LAYING IN BED WITH EYES CLOSED. TRIED TO WAKE PT AND HE REFUSED. ENCOURAGED HIM TO EAT BREAKFAST AND INFORMED HIM OF MEDICATION TIME. WILL CONTINUE TO MONITOR.
[2017-06-03 08:00] VITALS: BP 94/63
[2017-06-03] MEDS ORDERED: BUPRENORPHINE HCL 2 MG TAB.SUBL SL SCH ×2 (09:00)
[2017-06-03] MEDS: MULTIVITAMINS,THERAPEUTIC TABLET PO SCH (09:00)
--- NOTE | 2017-06-03 10:10 | NUR ---
SEVERAL ATTEMPTS MADE TO WAKE PT FOR MEDS. HE REFUSED. WILL HOLD MEDS. COWS DEFERRED.
[2017-06-03 12:00] VITALS: BP 118/64
--- NOTE | 2017-06-03 13:51 | NUR ---
PT IS VERBALIZING HIS DESIRE TO LEAVE AMA. NOTIFIED MULTIDISCIPLINARY TEAM TO INTERVENE.
--- NOTE | 2017-06-03 14:20 | NUR ---
DISCHARGE AMA: DESPITE MULTIPLE ATTEMPTS AT REDIRECTING PT TO STAY,PT MADE A DECISION TO LEAVE AMA. HE FUSED THE LIST OF COMMUNITY RESOURCES.BELONGINGS RETURNED.HE SIGNED AMA FORM. HE DENIED S/I AND H/I AND A/OX 4. TRIAL MGR ESCORTED PT OFF THE PREMISES AT 1415.
[2017-06-04] MEDS ORDERED: BUPRENORPHINE HCL 2 MG TAB.SUBL SL SCH (09:00)
== END 2017-06-03 14:15 | disposition left against medical advice (07) | DRG 894 ==
LOC: SRC 14:37
PROVIDERS: ADMIT Internal Medicine; ATTEND Internal Medicine
PROC: HZ2ZZZZ Detoxification Services for Substance Abuse Treatment (ICD-10-PCS; principal; 2017-05-31)
PROC: HZ51ZZZ Individual Psychotherapy for Substance Abuse Treatment, Behavioral (ICD-10-PCS; 2017-06-02)
DX: F11.23 Opioid dependence with withdrawal (principal); D69.6 Thrombocytopenia, unspecified; F15.20 Other stimulant dependence, uncomplicated; Z81.8 Family history of other mental and behavioral disorders; Y90.9 Presence of alcohol in blood, level not specified; Z59.0 Homelessness; F17.210 Nicotine dependence, cigarettes, uncomplicated; F41.9 Anxiety disorder, unspecified; F31.9 Bipolar disorder, unspecified; F10.10 Alcohol abuse, uncomplicated; D64.9 Anemia, unspecified; Z20.5 Contact with and (suspected) exposure to viral hepatitis; Z59.1 Inadequate housing
CPT/HCPCS: 36415; 80307; 80345; 80361; 83690; 83735; 85025; 86580; 86592; 86705; 86803; 87340; 87806; G0480; Q0163